=== PATIENT | female | born 1980 | race Caucasian/White ===

== ENCOUNTER 2021-09-28 08:39 | Emergency (ER) | payer OTHER ==
[2021-09-28] MEDS ORDERED: Dexamethasone 10 MG/ML SDV IM STA (08:57)
[2021-09-28] MEDS ORDERED: Acetaminophen 500 MG Tab PO ONE (08:59)
[2021-09-28] MEDS ORDERED: Ibuprofen 600 MG Tab PO ONE (08:59)
[2021-09-28 10:25] LABS: CORONAVIRUS COVID-19 NAA NEGATIVE (NEGATIVE); INFLUENZA A NAA NEGATIVE (NEGATIVE); INFLUENZA B NAA NEGATIVE (NEGATIVE)
== END 2021-09-28 10:41 | disposition home or self-care (01) ==
LOC: MW.ED 08:39
DX: J02.9 Acute pharyngitis, unspecified (principal); L50.9 Urticaria, unspecified; Z72.0 Tobacco use; Z20.822 Contact with and (suspected) exposure to COVID-19
CPT/HCPCS: 0240U; 81001; 81025; 87651; 96372; 99283; A9270; J1100

== ENCOUNTER 2021-09-30 07:41 | Emergency (ER) | payer OTHER ==
[2021-09-30] MEDS ORDERED: Sodium Chloride 0.9% 1,000 ML IV ONE (08:04)
[2021-09-30 08:39] LABS: BLOOD UREA NITROGEN,BUN 14 mg/dL (7.0-18.0); CARBON DIOXIDE,CO2 24.7 mmol/L (21.0-32.0); CHLORIDE,CL 104 mmol/L (98-107); GLUCOSE RANDOM 92 mg/dL (74-106); POTASSIUM,K 4.4 mmol/L (3.5-5.1); SODIUM,NA 137 mmol/L (136-145)
== END 2021-09-30 10:07 | disposition home or self-care (01) ==
LOC: MW.ED 07:41
DX: M79.10 Myalgia, unspecified site (principal); F17.210 Nicotine dependence, cigarettes, uncomplicated; Z79.899 Other long term (current) drug therapy
CPT/HCPCS: 36415; 80053; 81025; 82550; 84484; 85025; 86308; 87651; 93005; 99283; J7030; 93010